=== PATIENT | female | born 2000 | race Caucasian/White ===

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

== ENCOUNTER 2019-03-05 17:41 | Emergency (ER) | payer OTHER ==
[2019-03-05 20:00] LABS: ABS Lymphocytes 1.7 10^3/ul (1.0-4.8); ABS Monocytes 1.3 10^3/ul (0-0.8); Eosinophil % 0.2 %; Hematocrit 40 % (35-47); Hemoglobin 13.8 g/dL (12.0-16.0); Lymphocyte % 12.4 %; Mean Corpuscular HGB Conc 34 g/dL (31-36); Mean Corpuscular Hemoglobin 30 pg (27-31); Mean Corpuscular Volume 89 fL (80-97); Mean Platelet Volume 7.2 fL (7.4-10.4); Platelet Count 260 10^3/uL (150-450); Red Blood Count 4.53 10^6 /uL (3.70-4.87); Red Cell Distribution Width 13 % (10-15); White Blood Count 14.1 10^3/uL (3.5-10.8)
[2019-03-05 20:18] LABS: ALT 9 U/L (7-52); AST 12 U/L (13-39); Albumin/Globulin Ratio 1.8 (1-3); Alkaline Phosphatase 67 U/L (34-104); Anion Gap 12 mmol/L (2-11); BUN/Creatinine Ratio 11.8 (8-20); Blood Urea Nitrogen 8 mg/dL (6-24); C Reactive Protein 54.82 mg/L (<8.01); CO2 Carbon Dioxide 25 mmol/L (22-32); Calcium 9.9 mg/dL (8.6-10.3); Chloride 99 mmol/L (101-111); EGFR African American 134.9 (>60); EGFR Non-African American 111.5 (>60); Globulin 2.8 g/dL (2-4); Glucose 84 mg/dL (70-100); Potassium 4.2 mmol/L (3.5-5.0); Sodium 136 mmol/L (135-145); Total Protein 7.8 g/dL (6.4-8.9)
[2019-03-05 20:23] LABS: HCG Pregnancy < 0.60 mIU/mL
[2019-03-05] MEDS ORDERED: oxyCODONE/Acetamin 5/325 MG* TAB PO ONE (21:34)
--- NOTE | 2019-03-05 21:35 | ED ---
GI/ HPI - HPI Summary HPI Summary: This pt is a 18 y/o female presenting to [facility] c/o bilateral flank pain, more right than left since last night. Pt reports she was diagnosed with a UTI at [facility] about 1 month ago. She states she was given antibiotics but a few days later she received a letter saying it was the wrong antibiotic and she needed a different one. Pt notes she didn't follow up with [facility] as she was already feeling better. Denies dysuria, hematuria, urinary frequency. She currently rates her flank pain 10/10 in severity. Pt with a fever of 100.8F in the ED at 1944. Denies chills, erythema of eyes, sore throat, chest pain, SOB, cough, abd pain, nausea, vomiting, myalgia, edema, rash, or dizziness. Pt states her periods are on time and she just had her period. No FHx of kidney stones. - History of Current Complaint Chief Complaint: EDFlankPain Stated Complaint: BACK PAIN PER PT Hx Obtained From: Patient Hx Last Menstrual Period: 03/04/16 Onset/Duration: Started Days Ago - 1, Still Present Timing: Lasting Days - 1 Current Severity: Severe Pain Intensity: 10 Location of Pain: Flank - bilateral Associated Signs and Symptoms: Positive: Fever, Flank Pain - bilateral. Negative: Nausea, Vomiting, Diarrhea, Hematuria, Dysuria, Chills, Abdominal Pain , Cough, Chest Pain Aggravating Factor(s): Nothing Alleviating Factor(s): Nothing - Allergy/Home Medications Allergies/Adverse Reactions: Allergies Allergy/AdvReac Type Severity Reaction Status Date / Time No Known Allergies Allergy Verified 03/05/19 17:46 PMH/Surg Hx/FS Hx/Imm Hx Respiratory History: Denies: Hx Asthma Sensory History: Denies: Hx Legally Blind, Hx Deafness Opthamlomology History: Denies: Hx Legally Blind Neurological History: Denies: Hx Seizures - Surgical History Surgical History: Yes Surgery Procedure, Year, and Place: 2018 Infectious Disease History: No Infectious Disease History: Denies: Traveled Outside the [place] in Last 30 Days - Family History Known Family History: Negative: Diabetes Family History: No FHx of kidney stones. - Social History Alcohol Use: None Substance Use Type: Reports: None Smoking Status (MU): Light Every Day Tobacco Smoker Type: Cigarettes Have You Smoked in the Last Year: Yes Review of Systems Positive: Fever. Negative: Chills Negative: Erythema Negative: Sore Throat Negative: Chest Pain Negative: Shortness Of Breath, Cough Negative: Abdominal Pain, Vomiting, Nausea Positive: flank pain - bilateral. Negative: dysuria, frequency, hematuria Negative: Myalgia, Edema Negative: Rash Neurological: Other - NEGATIVE: dizziness All Other Systems Reviewed And Are Negative: Yes Physical Exam - Summary Physical Exam Summary: Constitutional: Well-developed, Well-nourished, Alert. (-) Distressed Skin: Warm, Dry HENT: Normocephalic; Atraumatic Eyes: Conjunctiva normal Neck: Musculoskeletal ROM normal neck. (-) JVD, (-) Stridor, (-) Tracheal deviation Cardio: Rhythm regular, rate normal, Heart sounds normal; Intact distal pulses; The pedal pulses are 2+ and symmetric. Radial pulses are 2+ and symmetric. (-) Murmur Pulmonary/Chest wall: Effort normal. (-) Respiratory distress, (-) Wheezes, (-) Rales Abd: Soft, (-) tenderness, (-) Distension, (-) Guarding, (-) Rebound Musculoskeletal: (-) Edema. Right CVA tenderness. Lymph: (-) Cervical adenopathy Neuro: Alert, Oriented x3 Psych: Mood and affect Normal Triage Information Reviewed: Yes Vital Signs On Initial Exam: Initial Vitals Temp Pulse Resp BP Pulse Ox 98.7 F 107 19 130/83 100 03/05/19 17:43 03/05/19 17:43 03/05/19 17:43 03/05/19 17:43 03/05/19 17:43 Vital Signs Reviewed: Yes Procedures - Sedation Patient Received Moderate/Deep Sedation with Procedure: No Diagnostics - Vital Signs Vital Signs Temp Pulse Resp BP Pulse Ox 03/05/19 19:44 100.8 F 105 18 122/74 98 03/05/19 17:43 98.7 F 107 19 130/83 100 - Laboratory Lab Results: Lab Results 03/05/19 03/05/19 03/05/19 Range/Units 19:53 19:53 19:53 WBC 14.1 H (3.5-10.8) 10^3/uL RBC 4.53 (3.70-4.87) 10^6 /uL Hgb 13.8 (12.0-16.0) g/dL Hct 40 (35-47) % MCV 89 (80-97) fL MCH 30 (27-31) pg MCHC 34 (31-36) g/dL RDW 13 (10-15) % Plt Count 260 (150-450) 10^3/uL MPV 7.2 L (7.4-10.4) fL Neut % (Auto) 78.0 % Lymph % (Auto) 12.4 % [place] % (Auto) 9.2 % Eos % (Auto) 0.2 % Baso % (Auto) 0.2 % Absolute Neuts (auto) 11.0 H (1.5-7.7) 10^3/ul Absolute Lymphs (auto) 1.7 (1.0-4.8) 10^3/ul Absolute Monos (auto) 1.3 H (0-0.8) 10^3/ul Absolute Eos (auto) 0.0 (0-0.6) 10^3/ul Absolute Basos (auto) 0.0 (0-0.2) 10^3/ul Absolute Nucleated RBC 0.0 10^3/ul Nucleated RBC % 0.0 Sodium 136 (135-145) mmol/L Potassium 4.2 (3.5-5.0) mmol/L Chloride 99 L (101-111) mmol/L Carbon Dioxide 25 (22-32) mmol/L Anion Gap 12 H (2-11) mmol/L BUN 8 (6-24) mg/dL Creatinine 0.68 (0.51-0.95) mg/dL Est GFR ( Amer) 134.9 (>60) Est GFR (Non-Af Amer) 111.5 (>60) BUN/Creatinine Ratio 11.8 (8-20) Glucose 84 (70-100) mg/dL Lactic Acid 0.7 (0.5-2.0) mmol/L Calcium 9.9 (8.6-10.3) mg/dL Total Bilirubin 0.70 (0.2-1.0) mg/dL AST 12 L (13-39) U/L ALT 9 (7-52) U/L Alkaline Phosphatase 67 (34-104) U/L C-Reactive Protein 54.82 H (<8.01) mg/L Total Protein 7.8 (6.4-8.9) g/dL Albumin 5.0 (3.2-5.2) g/dL Globulin 2.8 (2-4) g/dL Albumin/Globulin Ratio 1.8 (1-3) Lipase < 10 L (11.0-82.0) U/L Beta HCG, Quant < 0.60 mIU/mL Result Diagrams: 03/05/19 19:53 03/05/19 19:53 Lab Statement: Any lab studies that have been ordered have been reviewed, and results considered in the medical decision making process. GIGU Course/Dx - Course Assessment/Plan: Pt is a 18 y/o female presenting to [facility] c/o bilateral flank pain, more right than left since last night. Pt reports she was diagnosed with a UTI at [facility] about 1 month ago. She states she was given antibiotics but a few days later she received a letter saying it was the wrong antibiotic and she needed a different one. Pt notes she didn't follow up with [facility] as she was already feeling better. Denies dysuria, hematuria , urinary frequency. She currently rates her flank pain 10/10 in severity. Pt with a fever of 100.8F in the ED at 1944. Labs remarkable for WBC of 14.1, chloride is 99, anion gap is 12, CRP is 54.82, lipase <10. In the ED course the pt was given IV fluids, Toradol, Percocet, and Rocephin. Pt will be signed out to Dr. Thomson pending urinalysis and renal US to rule out obstructing stone , but most likely patient has pyelo. - Diagnoses Provider Diagnoses: Pyelonephritis Discharge ED - Sign-Out/Discharge Documenting (check all that apply): Sign-Out Patient Signing out patient TO: Stevenson Thomson - pending UA and renal US - Discharge Plan Condition: Stable Disposition: HOME Prescriptions: Ciprofloxacin TAB* [Cipro 500 MG TAB*] 500 mg PO BID #20 tab Ondansetron ODT TAB* [Zofran 4 MG Odt TAB*] 8 mg PO Q6H PRN #12 tab.odt PRN Reason: Nausea Patient Education Materials: Kidney Infection (ED) Referrals: [facility] [Outside] - Billing Disposition and Condition Condition: STABLE Disposition: Home - Attestation Statements Document Initiated by Scribe: Yes Documenting Scribe: Caterina Cash Provider For Whom Scribe is Documenting (Include Credential): Mayco Salas MD Scribe Attestation: I, Caterina Cash, scribed for Mayco Salas MD on 03/17/19 at 0944. Scribe Documentation Reviewed: Yes Provider Attestation: The documentation as recorded by the [email or web address] accurately reflects the service I personally performed and the decisions made by me, Mayco Salas MD Status of Scribe Document: Viewed
[2019-03-05] MEDS ORDERED: NS 0.9% 1000 ML** 1,000 ML IV ONE ×2 (21:36→21:54)
[2019-03-05] MEDS ORDERED: cefTRIAXone(*) 1 GM in NS 0.9% 50 ML* 50 ML IVPB ONE (21:36)
[2019-03-05] MEDS ORDERED: Ketorolac INJ* 30 MG/ML 1 ML VIAL IV PUSH ONE (21:48)
[2019-03-05 21:55] LABS: Urine Appearance Cloudy; Urine Bilirubin Negative (Negative); Urine Blood 1+ (Negative); Urine Color Amber; Urine Glucose Negative (Negative); Urine Ketones 1+ (Negative); Urine Nitrite Positive (Negative); Urine Protein Negative (Negative); Urine Specific Gravity 1.017 (1.010-1.030); Urine Urobilinogen Negative (Negative)
[2019-03-05 22:04] LABS: Urine Bacteria Absent (Absent); Urine Red Blood Cell 3+(>10/hpf) (Absent); Urine Squamous Epithelial Cell Present (Absent); Urine White Blood Cell 2+(11-20/hpf) (Absent)
--- NOTE | 2019-03-05 22:27 | ED ---
Progress - Progress Note Progress Note: Pt is a signout from Dr. Salas at 2200 pending US renal and UA. - Results/Orders Results/Orders: Renal US shows: Sonographically normal kidneys. ED physician has reviewed this report. Course/Dx - Course Course Of Treatment: Pt is a signout from Dr. Salas at 2200 pending US renal and UA. US renal shows: Sonographically normal kidneys. I discussed results with the patient and explained that even on antibiotics it will take several days for her symptoms to start to denis. She understands and knows what should prompt a reevaluation sooner. She can go home with dx of pyelonephritis. - Diagnoses Provider Diagnoses: Pyelonephritis Discharge ED - Sign-Out/Discharge Documenting (check all that apply): Patient Departure, Receiving Sign-Out Receiving patient FROM: Mayco Salas - Discharge Plan Condition: Stable Disposition: HOME Prescriptions: Ciprofloxacin TAB* [Cipro 500 MG TAB*] 500 mg PO BID #20 tab Ondansetron ODT TAB* [Zofran 4 MG Odt TAB*] 8 mg PO Q6H PRN #12 tab.odt PRN Reason: Nausea Patient Education Materials: Kidney Infection (ED) Referrals: [facility] [Outside] - Billing Disposition and Condition Condition: STABLE Disposition: Home - Attestation Statements Document Initiated by Lizzetteibe: Yes Documenting Scribe: Melissa Moon Provider For Whom Curt is Documenting (Include Credential): Stevenson Thomson MD. Scribe Attestation: Melissa Kelley, saried for Stevenson Thomson MD. on 03/06/19 at 0624. Scribe Documentation Reviewed: Yes Provider Attestation: The documentation as recorded by the [email or web address] accurately reflects the service I personally performed and the decisions made by , Stevenson Thomson MD. Status of Scribe Document: Viewed
[2019-03-05] MEDS ORDERED: Ondansetron ODT TAB* 4 MG SL ONE (23:02)
[2019-03-06 00:01] VITALS: BP 124/71
== END 2019-03-06 00:05 | disposition home or self-care (01) ==
LOC: ED 17:41
DX: N12 Tubulo-interstitial nephritis, not specified as acute or chronic (principal); F17.210 Nicotine dependence, cigarettes, uncomplicated
CPT/HCPCS: 36415; 76775; 80053; 81003; 81015; 83605; 83690; 84702; 85025; 86140; 87040; 87077; 87086; 87186; 96361; 96365; 96375; 99283; A9270-GY; J0696; J1885

== ENCOUNTER 2019-03-26 11:17 | Emergency (ER) | payer OTHER ==
[2019-03-26 11:21] VITALS: BP 117/95
--- NOTE | 2019-03-26 11:34 | ED ---
Influenza-Like Illness - HPI Summary HPI Summary: 18-year-old female with no significant past medical history presents to the emergency department today complaining of 3 days of flulike symptoms. Patient states she has had fevers, muscle aches, abdominal pain, nausea, vomiting, diarrhea, productive cough for approximately 3 days. Patient states she isn't taking Mucinex with minimal relief. She states she has not gotten her influenza vaccination this year. Family history and social history noncontributory. Patient is currently on her menstrual cycle which is normal. Patient denies chest pain, pain with urination, rash, changes in vision, neck pain. Patient is a smoker. Patient states she has been able to drink water however she has not had much appetite. - History of Current Complaint Chief Complaint: EDFluSymptoms Time Seen by Provider: 03/26/19 11:22 Hx Obtained From: Patient Onset/Duration: Gradual Onset Severity: Moderate Associated Signs & Symptoms: Fever, Myalgia, Cough, Sore Throat, Nasal Congestion, Headache, Vomiting, Diarrhea Related Hx: Smoking - Allergy/Home Medications Allergies/Adverse Reactions: Allergies Allergy/AdvReac Type Severity Reaction Status Date / Time No Known Allergies Allergy Verified 03/05/19 17:46 PMH/Surg Hx/FS Hx/Imm Hx Respiratory History: Denies: Hx Asthma Sensory History: Denies: Hx Legally Blind, Hx Deafness Opthamlomology History: Denies: Hx Legally Blind Neurological History: Denies: Hx Seizures - Surgical History Surgery Procedure, Year, and Place: 2018 Infectious Disease History: No Infectious Disease History: Denies: Traveled Outside the [place] in Last 30 Days - Family History Known Family History: Negative: Diabetes Family History: No FHx of kidney stones. - Social History Alcohol Use: None Substance Use Type: Reports: None Smoking Status (MU): Light Every Day Tobacco Smoker Type: Cigarettes Have You Smoked in the Last Year: Yes Review of Systems Positive: Fever, Fatigue Eyes: Negative ENT: Negative Positive: Chest Pain Positive: Shortness Of Breath, Cough Positive: Abdominal Pain, Vomiting, Diarrhea, Nausea Genitourinary: Negative Positive: Myalgia. Negative: Arthralgia Skin: Negative Positive: Headache. Negative: Weakness, Paresthesia, Numbness, Syncope Psychological: Normal All Other Systems Reviewed And Are Negative: Yes Physical Exam Triage Information Reviewed: Yes Vital Signs On Initial Exam: Initial Vitals Temp Pulse Resp BP Pulse Ox 99.5 F 122 18 117/95 97 03/26/19 11:18 03/26/19 11:18 03/26/19 11:18 03/26/19 11:18 03/26/19 11:18 Vital Signs Reviewed: Yes Appearance: Positive: Well-Appearing, No Pain Distress, Well-Nourished Skin: Positive: Warm, Skin Color Reflects Adequate Perfusion Eyes: Positive: EOMI, KATHY ENT: Positive: Hearing grossly normal Neck: Positive: Nontender Respiratory/Lung Sounds: Positive: Breath Sounds Present, Decreased Breath Sounds, Rhonchi Cardiovascular: Positive: RRR, Tachycardia, S1, S2 Abdomen Description: Positive: Nontender, Soft. Negative: Distended, Guarding Bowel Sounds: Positive: Present Musculoskeletal: Positive: Strength/ROM Intact Neurological: Positive: Sensory/Motor Intact, Alert, Oriented to Person Place, Time, Normal Gait, Speech Normal Procedures - Sedation Patient Received Moderate/Deep Sedation with Procedure: No Diagnostics - Vital Signs Vital Signs Temp Pulse Resp BP Pulse Ox 03/26/19 11:18 99.5 F 122 18 117/95 97 - Laboratory Lab Statement: Any lab studies that have been ordered have been reviewed, and results considered in the medical decision making process. Flu Symptom Course/Dx - Course Course Of Treatment: Patient was seen and evaluated. Vitals noted patient was mildly tachycardic at a rate 122 bpm. Rapid influenza swab was obtained and a chest x-ray was done. Patient was given 975 of Tylenol and 600 mg of ibuprofen for fever. She was given by mouth fluids. Rapid influenza test resulted positive for influenza B. Chest x-ray revealed no evidence of acute cardiopulmonary pathology such as pneumonia. Patient presents to the emergency department greater than 48 hours after symptoms began and is not candidate for Tamiflu. Patient was instructed to take ibuprofen and Tylenol for fever and to increase intake of oral fluids and rest. Patient is to follow-up with her primary care provider in 5 days for further evaluation and management. - Diagnoses Differential Diagnosis/HQI/PQRI: Positive: Bronchitis, Influenza, Pneumonia, Upper Respiratory Infection Provider Diagnoses: Influenza B Discharge ED - Sign-Out/Discharge Documenting (check all that apply): Patient Departure - Discharge Plan Condition: Stable Disposition: HOME Patient Education Materials: Influenza (ED) Forms: *Work Release Referrals: No Primary Care Phys,NOPCP [Primary Care Provider] - [facility] [Outside] - 5 Days Additional Instructions: You were seen in the emergency department today and diagnosed with influenza. Please take Tylenol 650 mg every 6 hours as needed for fever. This may be alternated with ibuprofen 600 mg every 6 hours. Take this medications in a staggered fashion to allow you to take a medication every 3 hours; for example take Tylenol at noon, and then ibuprofen at 3,then Tylenol at 6 ,then ibuprofen at 9.. Please follow up with your primary care physician or [facility] in 5 days for further evaluation and management. Please return to the emergency department immediately if you develop any new or worsening symptoms. - Billing Disposition and Condition Condition: STABLE Disposition: Home - Attestation Statements Provider Attestation: I was available for consult. This patient was seen by the SARAY. The patient was not presented to, seen by, or examined by me. Gabino Bryan MD
[2019-03-26] MEDS ORDERED: Acetaminophen TAB* 325 MG PO ONE (11:35)
[2019-03-26] MEDS ORDERED: Ibuprofen TAB* 600 MG PO ONE (11:36)
[2019-03-26 11:48] LABS: Influenza B Molecular POSITIVE (Negative)
== END 2019-03-26 12:26 | disposition home or self-care (01) ==
LOC: ED 11:17
DX: J10.1 Influenza due to other identified influenza virus with other respiratory manifestations (principal); F17.210 Nicotine dependence, cigarettes, uncomplicated
CPT/HCPCS: 71046; 99282; A9270-GY

== ENCOUNTER 2019-05-31 12:28 | Emergency (ER) | payer OTHER ==
--- NOTE | 2019-05-31 13:11 | ED ---
Psychiatric Complaint - HPI Summary HPI Summary: 18 year old F arriving via EMS to [facility] accompanied by law enforcement presents with superficial abrasions to the left forearm after cutting herself this morning. Patient's sister found out that patient was cutting herself. Patient got in an argument with sister. Sister then called police. Hx suicidal attempt. Patient tried hanging herself when she was 12 years old. She got as far as tying the rope and setting up a chair but didn't follow through. She received treatment and was admitted for 1 year. She hasn't been admitted since. Patient admits to smoking marijuana and cigarettes. No alcohol or drugs this morning. Patient denies any fever, chills, erythema of eyes, sore throat, chest pain, shortness of breath, cough, abdominal pain, nausea/vomiting, dysuria, hematuria , myalgia, edema, rash, dizziness, suicidal ideation. Home Medications Medication Instructions Recorded Confirmed Type Ciprofloxacin TAB* [Cipro 500 MG 500 mg PO BID #20 tab 03/05/19 Rx TAB*] Ondansetron ODT TAB* [Zofran 4 MG 8 mg PO Q6H PRN #12 tab.odt 03/05/19 Rx Odt TAB*] - History Of Current Complaint Chief Complaint: EDMentalHealth Time Seen by Provider: 05/31/19 13:02 Hx Obtained From: Patient Onset/Duration: Lasting Hours, Still Present Timing: Constant Severity Currently: None Aggravating Factor(s): Nothing Alleviating Factor(s): Nothing Related History: Positive For: Prior Psychiatric Issues Has Suicidal: Denies: Thoughts - Allergies/Home Medications Allergies/Adverse Reactions: Allergies Allergy/AdvReac Type Severity Reaction Status Date / Time No Known Allergies Allergy Verified 03/05/19 17:46 Home Medications: Home Medications Ciprofloxacin TAB* [Cipro 500 MG TAB*] 500 mg PO BID #20 tab 03/05/19 [Rx] Ondansetron ODT TAB* [Zofran 4 MG Odt TAB*] 8 mg PO Q6H PRN #12 tab.odt [Rx] PMH/Surg Hx/FS Hx/Imm Hx Respiratory History: Denies: Hx Asthma Neurological History: Denies: Hx Seizures Psychiatric History: Reports: Hx Suicide Attempt - 12 y/o, Other Psychiatric Issues/Disorders - hx cutting - Surgical History Surgery Procedure, Year, and Place: 2018 Infectious Disease History: No Infectious Disease History: Denies: Traveled Outside the [place] in Last 30 Days - Family History Known Family History: Negative: Diabetes Family History: No FHx of kidney stones. - Social History Alcohol Use: None Hx Substance Use: Yes Substance Use Type: Reports: Marijuana Hx Tobacco Use: Yes Smoking Status (MU): Light Every Day Tobacco Smoker Type: Cigarettes Have You Smoked in the Last Year: Yes Review of Systems Negative: Fever, Chills Negative: Erythema Negative: Sore Throat Negative: Chest Pain Negative: Shortness Of Breath, Cough Negative: Abdominal Pain, Vomiting, Nausea Negative: dysuria, hematuria Negative: Myalgia, Edema Positive: Other - superficial abrasions to the left forearm. Negative: Rash Neurological/Mental Status: Negative - Dizziness Positive: Other - NEG: SI All Other Systems Reviewed And Are Negative: Yes Physical Exam - Summary Physical Exam Summary: Constitutional: Well-developed, Well-nourished, Alert. (-) Distressed Skin: Warm, Dry; superficial abrasions to left forearm HENT: Normocephalic; Atraumatic Eyes: Conjunctiva normal Neck: Musculoskeletal ROM normal neck. (-) JVD, (-) Stridor, (-) Tracheal deviation Cardio: Rhythm regular, rate normal, Heart sounds normal; Intact distal pulses; The pedal pulses are 2+ and symmetric. Radial pulses are 2+ and symmetric. (-) Murmur Pulmonary/Chest wall: Effort normal. (-) Respiratory distress, (-) Wheezes, (-) Rales Abd: Soft, (-) tenderness, (-) Distension, (-) Guarding, (-) Rebound Musculoskeletal: (-) Edema Lymph: (-) Cervical adenopathy Neuro: Alert, Oriented x3 Psych: Mood and affect Normal Triage Information Reviewed: Yes Vital Signs On Initial Exam: Initial Vitals Temp Pulse Resp BP Pulse Ox 0 F 0 15 0/0 0 05/31/19 12:44 05/31/19 12:44 05/31/19 12:44 05/31/19 12:44 05/31/19 12:44 Vital Signs Reviewed: Yes Procedures - Sedation Patient Received Moderate/Deep Sedation with Procedure: No Diagnostics - Vital Signs Vital Signs Temp Pulse Resp BP Pulse Ox 05/31/19 12:44 0 F 0 15 0/0 0 - Laboratory Result Diagrams: 05/31/19 13:23 05/31/19 13:23 Lab Statement: Any lab studies that have been ordered have been reviewed, and results considered in the medical decision making process. Re-Evaluation - Re-Evaluation First Eval Re-Evaluation Time: 13:33 Comment: patient is medically cleared for psychiatric evaluation Course/Dx - Course Course Of Treatment: 18 y/o F with hx suicidal ideation brought in by law enforcement for superficial abrasions to the left forearm after cutting herself this morning. Patient tried hanging herself when she was 12 years old. Patient admits to smoking marijuana and cigarettes. No alcohol or drugs this morning. She denies suicidal ideation. Upon physical exam, she has superficial abrasions to left forearm. Patient placed on constant observation. Bloodwork results with no significant abnormalities. Drug screen negative. Patient is medically cleared for [facility]. Psychiatric speaker mounter Chase reviewed case with Dr. Chahal. The patient will be discharged. - Differential Dx/Clinical Impression Provider Diagnosis: Mood disorder - Physician Notifications Time Discussed With Above Provider: 14:39 Instructed by Provider To: Other - Psychiatric speaker mounter Chase reviewed case with Dr. Chahal. They will discharge patient. Discharge ED - Sign-Out/Discharge Documenting (check all that apply): Patient Departure - Discharge Plan Disposition: HOME Referrals: No Primary Care Phys,NOPCP [Primary Care Provider] - - Attestation Statements Document Initiated by Scribe: Yes Documenting Scribe: Aurora Bullock Provider For Whom Scribe is Documenting (Include Credential): Mayco Salas MD Scribe Attestation: Aurora Kelley, scribed for Mayco aSlas MD on 05/31/19 at 1837.
[2019-05-31] MEDS ORDERED: Nicotine* 2MG (FRUIT FLAVOR) GUM PO PRN (13:25)
[2019-05-31] MEDS ORDERED: Nicotine PATCH 14 MG/24 HR* PATCH TRANSDERM ONE (13:25)
[2019-05-31 13:30] LABS: ABS Basophils 0.1 10^3/ul (0-0.2); ABS Eosinophils 0.1 10^3/ul (0-0.6); ABS Lymphocytes 1.7 10^3/ul (1.0-4.8); ABS Monocytes 0.9 10^3/ul (0-0.8); ABS Neutrophils 6.7 10^3/ul (1.5-7.7); Eosinophil % 0.9 %; Hematocrit 41 % (35-47); Hemoglobin 14.4 g/dL (12.0-16.0); Lymphocyte % 17.8 %; Mean Corpuscular HGB Conc 35 g/dL (31-36); Mean Corpuscular Hemoglobin 31 pg (27-31); Mean Corpuscular Volume 90 fL (80-97); Mean Platelet Volume 7.5 fL (7.4-10.4); Platelet Count 252 10^3/uL (150-450); Red Cell Distribution Width 14 % (10-15); White Blood Count 9.4 10^3/uL (3.5-10.8)
[2019-05-31 13:55] LABS: ALT 8 U/L (7-52); AST 12 U/L (13-39); Albumin 4.9 g/dL (3.2-5.2); Albumin/Globulin Ratio 1.9 (1-3); Alkaline Phosphatase 60 U/L (34-104); Anion Gap 7 mmol/L (2-11); BUN/Creatinine Ratio 20.5 (8-20); Blood Urea Nitrogen 15 mg/dL (6-24); CO2 Carbon Dioxide 24 mmol/L (22-32); Calcium 9.9 mg/dL (8.6-10.3); Chloride 107 mmol/L (101-111); EGFR African American 124.3 (>60); EGFR Non-African American 102.7 (>60); Globulin 2.6 g/dL (2-4); Glucose 84 mg/dL (70-100); Potassium 4.2 mmol/L (3.5-5.0); Sodium 138 mmol/L (135-145); Total Protein 7.5 g/dL (6.4-8.9)
[2019-05-31 13:58] LABS: Acetaminophen < 15 mcg/mL; Alcohol < 10 mg/dL (<10); Salicylate < 2.50 mg/dL (<30)
[2019-05-31 14:01] LABS: HCG Pregnancy < 0.60 mIU/mL
[2019-05-31 14:13] LABS: TSH (Thyroid Stimulating Horm) 4.22 mcIU/mL (0.34-5.60)
[2019-05-31 15:19] VITALS: BP 115/77
[2019-06-01] MEDS ORDERED: Nicotine Patch Removal NOTE FOLLOW UP SCH (06:00)
== END 2019-05-31 15:16 | disposition home or self-care (01) ==
LOC: ED 12:28
DX: F39 Unspecified mood [affective] disorder (principal); S50.812A Abrasion of left forearm, initial encounter; X78.9XXA Intentional self-harm by unspecified sharp object, initial encounter; Y92.9 Unspecified place or not applicable; F17.210 Nicotine dependence, cigarettes, uncomplicated
CPT/HCPCS: 36415; 80053; 80320; 80329; 84443; 84702; 85025; 99285; A9270-GY; G0480

== ENCOUNTER 2022-08-25 06:08 | Inpatient (IN) ==
[~2022-08-25 06:08] MED LIST: Buffered Lidocaine 1% SYRIN 1 ml INTRADERM ONE; Lactated Ringers 1000 ml BAG 1,000 ML IV ONE; Lactated Ringers 1000 ml BAG 1,000 ML IV SCH; Sodium Citrate/Citric Acid LIQ 15 ML UDC PO ONE; ceFOXitin 2 GM IVPREMIX 2 GM/50 ML BAG IVPB ONE
[2022-08-25] MEDS ORDERED: Oxytocin 10 UNITS/ML 1 ML VIAL ONE (06:27)
[2022-08-25] MEDS ORDERED: Ondansetron 4 mg VIAL 2 MG/ML 2 ml VIAL ONE ×2 (06:27→11:38)
[2022-08-25] MEDS ORDERED: Phenylephrine IV 10 MG/ML 1 ml VIAL ONE (06:28)
[2022-08-25 06:50] LABS: ABS Eosinophils 0.1 10^3/uL (0.0-0.5); ABS Lymphocytes 1.8 10^3/uL (1.0-4.8); ABS Monocytes 0.9 10^3/uL (0.0-0.9); ABS Neutrophils 5.8 10^3/uL (1.5-7.6); ABS Nucleated RBC 0.01 10^3/ul; Eosinophil % 1.3 %; Hematocrit 34.3 % (35-45); Hemoglobin 11.8 g/dL (11.5-14.3); Mean Corpuscular Hemoglobin 31.7 pg (27-33); Mean Corpuscular Hgb Conc 34.3 g/dL (31-36); Mean Corpuscular Volume 92.2 fL (80-97); Mean Platelet Volume 8.3 fL (7.5-11.2); Nucleated Red Blood Cells % 0.1 /100 WBC (0.0-0.4); Platelet Count 224 10^3/uL (150-450); Red Blood Count 3.72 10^6/uL (3.63-4.92); Red Cell Distribution Width 12.5 % (12-17); White Blood Count 8.7 10^3/uL (3.8-11.8)
[2022-08-25] MEDS ORDERED: Lactated Ringers 1000 ml BAG 1,000 ML IV SCH ×2 (07:00→13:00)
[2022-08-25] MEDS ORDERED: Morphine PF AMP (0.5MG/ML) 5 MG/10 ML AMP ONE (11:22)
[2022-08-25] MEDS ORDERED: Phenylephrine 40 mcg/mL 10mL (400mcg) SYRINGE ONE (11:37)
[2022-08-25] MEDS ORDERED: Acetaminophen IV 1 GM/100ML 1,000 MG/100 ML BAG IV ONE (12:02)
[2022-08-25 12:36] LABS: Urine Appearance Clear; Urine Bilirubin Negative (Negative); Urine Blood Negative (Negative); Urine Color Yellow; Urine Glucose Negative (Negative); Urine Ketones 1+ (Negative); Urine Nitrite Negative (Negative); Urine Protein Negative (Negative); Urine Specific Gravity 1.011 (1.002-1.030); Urine Urobilinogen Negative (Negative)
[2022-08-25] MEDS ORDERED: Witch Hazel PAD JAR TOPICAL PRN (12:55)
[2022-08-25] MEDS ORDERED: RHO D Immune Globulin (HUMAN) 300 MCG = 1,500 I.U. INJ IM PRN (12:55)
[2022-08-25] MEDS ORDERED: Glycerin ADULT 2.4 gm SUPP PR PRN (12:55)
[2022-08-25] MEDS ORDERED: Oxytocin in LR 20,000 MILLI.UNIT/1,000 ML BAG IV SCH (13:00)
[2022-08-25 13:07] LABS: Urine Benzodiazepine Screen None Detected (None Detect); Urine Cannabinoids Screen Presumptive Positive (None Detect); Urine Opiates Screen None Detected (None Detect)
[2022-08-25] MEDS ORDERED: Acetaminophen IV 1 GM/100ML 1,000 MG/100 ML BAG IV PRN (13:38)
[2022-08-25] MEDS ORDERED: Naloxone 0.4 mg VIAL 0.4 mg/ml 1 ml VIAL IV PRN (13:38)
[2022-08-25] MEDS ORDERED: Metoclopramide 5 MG/ML VIAL (10 mg) IV PRN (13:38)
[2022-08-25] MEDS ORDERED: Naloxone 0.4 mg VIAL 0.4 mg/ml 1 ml VIAL IV PUSH PRN (13:38)
[2022-08-25] MEDS ORDERED: Ondansetron 4 mg VIAL 2 MG/ML 2 ml VIAL IV PRN (13:38)
[2022-08-26 06:36] LABS: Hemoglobin 10.8 g/dL (11.5-14.3); Mean Corpuscular Hemoglobin 32.1 pg (27-33); Mean Corpuscular Hgb Conc 34.9 g/dL (31-36); Mean Platelet Volume 8.1 fL (7.5-11.2); Platelet Count 180 10^3/uL (150-450); Red Blood Count 3.36 10^6/uL (3.63-4.92); Red Cell Distribution Width 12.4 % (12-17)
[2022-08-26 07:27] LABS: RBC Morphology Normal (Normal)
[2022-08-27 07:23] VITALS: BP 122/69
== END 2022-08-27 12:00 | disposition home or self-care (01) | DRG 540 ==
LOC: MCHOB 06:08
PROVIDERS: ADMIT Obstetrics & Gynecology; ATTEND Obstetrics & Gynecology